=== PATIENT | male | born 1980 | race Caucasian/White ===

== ENCOUNTER 2016-10-28 09:03 | Emergency (ER) | payer OTHER ==
[~2016-10-28] VITALS: Ht 175.3 cm; Wt 89.2 kg
[2016-10-28] MEDS ORDERED: AMOXICILLIN500 MG PO (10:03)
[2016-10-28] MEDS ORDERED: TYLENOL WITH C1 EACH PO (10:04)
[2016-10-28 10:23] VITALS: BP 134/72
== END 2016-10-28 10:24 | disposition home or self-care (01) ==
LOC: EME 09:03
DX: K04.7 Periapical abscess without sinus (principal)
CPT/HCPCS: 99281; 99284

== ENCOUNTER 2016-11-09 11:01 | Emergency (ER) | payer OTHER ==
[~2016-11-09] VITALS: Ht 175.3 cm; Wt 85.0 kg
[~2016-11-09 11:01] MED LIST: AMOXICILLIN500 MG PO; TYLENOL WITH C1 EACH PO
[2016-11-09] MEDS ORDERED: ULTRAM50 MG PO (12:48)
[2016-11-09] MEDS ORDERED: NAPROSYN500 MG PO (12:48)
[2016-11-09] MEDS ORDERED: TYLENOL WITH C1 EACH PO (13:12)
[2016-11-09 13:16] VITALS: BP 126/81
== END 2016-11-09 13:17 | disposition home or self-care (01) ==
LOC: EME 11:01
DX: K08.89 Other specified disorders of teeth and supporting structures (principal); K02.9 Dental caries, unspecified; F17.200 Nicotine dependence, unspecified, uncomplicated
CPT/HCPCS: 99281; 99284

== ENCOUNTER 2016-11-26 21:34 | Emergency (ER) | payer OTHER ==
[~2016-11-26] VITALS: Ht 175.3 cm; Wt 84.6 kg
[~2016-11-26 21:34] MED LIST changes: +NAPROSYN500 MG PO; +ULTRAM50 MG PO
[2016-11-26] MEDS ORDERED: PEN-VEE K,VEET500 MG PO (21:55)
[2016-11-26] MEDS ORDERED: NORCO 5/3251 TABLET PO (21:55)
[2016-11-26 22:27] VITALS: BP 125/81
== END 2016-11-26 22:28 | disposition home or self-care (01) ==
LOC: EME 21:34 → RME 21:34
DX: K08.89 Other specified disorders of teeth and supporting structures (principal); Z98.818 Other dental procedure status; F17.200 Nicotine dependence, unspecified, uncomplicated
CPT/HCPCS: 99281; 99283

== ENCOUNTER 2017-01-23 13:52 | Inpatient (IN) | payer OTHER ==
[~2017-01-23] VITALS: Ht 180.3 cm; Wt 73.4 kg
[2017-01-23] VITALS (10 sets, daily range): BP systolic 128–151; BP diastolic 86–96
[~2017-01-23 13:52] MED LIST changes: +NORCO 5/3251 TABLET PO; +PEN-VEE K,VEET500 MG PO
[2017-01-23 14:06] LABS: BASOPHIL COUNT 0.1 K/uL (0-0.1); EOSINOPHIL (%) 0.5 % (0-5); EOSINOPHIL COUNT 0.1 K/uL (0-0.3); HEMATOCRIT 39.9 % (38.0-50.0); IMMATURE GRANULOCYTE (%) 1.5 % (0.0-0.7); IMMATURE GRANULOCYTE COUNT 0.3 K/uL; INSTRUMENT ABS NEUTROPHIL CT 12.9 K/uL; LYMPHOCYTE COUNT 7.7 K/uL (1.0-2.8); MCH 30.5 PG (29.0-34.0); MCHC 32.1 G/DL (30.0-36.0); MEAN PLAT.VOLUME 10.3 uM^3 (9.0-12.4); MONOCYTE (%) 5.8 % (3-12); MONOCYTE COUNT 1.3 K/uL (0-0.8); NEUTROPHIL (%) 57.4 % (45-76); NEUTROPHIL COUNT 12.9 K/uL (1.8-6.4); PLATELET COUNT 279 K/uL (156-360); RBC DIS.WIDTH-CV 13.8 % (11.8-14.6); RBC DIS.WIDTH-SD 47.9 % (39-53); WHITE BLOOD COUNT 22.4 K/uL (4.1-10.2)
[2017-01-23 14:16] LABS: AMYLASE 39 IU/L (1-118); CHLORIDE 102 mEq/L (99-109); POTASSIUM 3.7 mEq/L (3.7-5.4); SODIUM 139 mEq/L (136-147)
[2017-01-23 14:18] LABS: GLUCOSE 306 mg/dL (70-99)
[2017-01-23 14:20] LABS: ANION GAP 16 MEQ/L (2-14)
[2017-01-23 14:21] LABS: SERUM ETHYL ALCOHOL < 10 mg/dL
[2017-01-23 14:22] LABS: GFR ESTIMATE (CALCULATED) 56 mL/min/
[2017-01-23 14:23] LABS: INTER. NORMALIZED RATIO 1.1; PROTHROMBIN TIME 10.8 (9.2-11.2); PTT 26.4 (25-32); UREA NITROGEN (BUN) 14 mg/dL (9-23)
[2017-01-23 14:25] LABS: LIPASE 30 U/L (1.0-51.0)
[2017-01-23 14:28] LABS: TROP-I INTERPRETATION NEGATIVE; TROPONIN-I < 0.01 ng/mL (0.0-0.30)
[2017-01-23 14:38] LABS: SALICYLATE < 5.0 MG/DL (15-30)
[2017-01-23 14:42] LABS: AMPHETAMINE NEGATIVE (500 ng/mL); BARBITURATES NEGATIVE (200 ng/mL); BENZODIAZEPINES NEGATIVE (150 ng/mL); COCAINE PRESUMPTIVE POSITIVE (150 ng/mL); METHADONE NEGATIVE (200 ng/mL); METHAMPHETAMINE NEGATIVE (500 ng/mL); OPIATES (MORPHINE) PRESUMPTIVE POSITIVE (100 ng/mL); OXYCODONE NEGATIVE (100 ng/mL); PHENCYCLIDINE NEGATIVE (25 ng/mL); PROPOXYPHENE NEGATIVE (300 ng/mL); THC CANNABINOIDS NEGATIVE (50 ng/mL); TRICYCLIC ANTIDEPRESSANTS PRESUMPTIVE POSITIVE (300 ng/mL)
[2017-01-23 14:43] LABS: ADD MEDTOX COMMENT Y; INTERNAL CONTROLS VALID? YES; MEDTOX DRUG SCREEN COMMENT SENT UPSTAIRS REPEAT
[2017-01-23 14:45] LABS: ADD MIUA? YES; BILIRUBIN NEGATIVE; BLOOD NEGATIVE; COLOR AMBER ((YELLOW)); GLUCOSE (STRIP) 150; KETONES 5; LEUKOCYTES NEGATIVE; NITRITE NEGATIVE; PROTEIN (STRIP) 100; SPECIFIC GRAVITY 1.033 (1.000-1.030); UROBILINOGEN 0.2 MG/DL (0.2-1.0)
[2017-01-23 14:54] LABS: BACTERIA 2+ /HPF; EPITHELIAL CELLS RARE /HPF; MUCUS 3+ /LPF; UCUL ADDED? YES
[2017-01-23 14:55] LABS: RED BLOOD CELLS RARE /HPF (0-5)
[2017-01-23 14:56] LABS: UNCLASSIFIED CASTS NONE SEEN /LPF
[2017-01-23 15:39] LABS: BASE EXCESS 4.4 mEq/L (-3 to +3); BICARBONATE 29.8 mEq/L (22-26); CARBOXY HGB 5.2 % (0-5); METHEMOGLOBIN 1.3 % (0-1.5); PCO2 46 mm Hg (35-45); PO2 437 mm Hg (80-100); pH 7.42 (7.35-7.45)
[2017-01-23 15:40] LABS: COMMENTS - BLOOD GASES C+; DEVICE 840; FI02 100 %; MECHANICAL RATE 16 resp/min; MODE A/C; PEEP 5 CM/H20; SITE LEFT ALINE; TIDAL VOLUME 500 ML; TOTAL RESP RATE 30 resp/min
[2017-01-23 17:38] LABS: SAMPLE HEMOLYSIS CHECK 0; SAMPLE ICTERIC CHECK 0; SAMPLE LIPEMIA CHECK 0
[2017-01-23 18:12] LABS: BASE EXCESS 3.8 mEq/L (-3 to +3); BICARBONATE 29.2 mEq/L (22-26); CARBOXY HGB 3.1 % (0-5); METHEMOGLOBIN 1.7 % (0-1.5); PCO2 46 mm Hg (35-45); PO2 138 mm Hg (80-100); pH 7.41 (7.35-7.45)
[2017-01-23 18:13] LABS: COMMENTS - BLOOD GASES C+; DEVICE 840 VENTILATOR; FI02 40 %; MECHANICAL RATE 18 resp/min; MODE AC; PEEP 5 CM/H20; SITE LT RADIAL ALINE; TIDAL VOLUME 470 ML; TOTAL RESP RATE 18 resp/min
[2017-01-23 20:09] LABS: METH RESISTANT S AUREUS PCR NEGATIVE (NEGATIVE)
[2017-01-23 20:13] LABS: PROBE CHECK PASS; SPECIMEN PROCESSING CONTROL PASS
[2017-01-23 21:15] LABS: EOSINOPHIL (%) 0.1 % (0-5); HEMATOCRIT 37.9 % (38.0-50.0); IMMATURE GRANULOCYTE (%) 0.7 % (0.0-0.7); IMMATURE GRANULOCYTE COUNT 0.1 K/uL; INSTRUMENT ABS NEUTROPHIL CT 16.8 K/uL; LYMPHOCYTE COUNT 1.1 K/uL (1.0-2.8); MCH 31.5 PG (29.0-34.0); MCHC 34.3 G/DL (30.0-36.0); MCV 91.8 FL (86-99); MEAN PLAT.VOLUME 10.1 uM^3 (9.0-12.4); MONOCYTE (%) 3.9 % (3-12); MONOCYTE COUNT 0.7 K/uL (0-0.8); NEUTROPHIL (%) 89.3 % (45-76); NEUTROPHIL COUNT 16.8 K/uL (1.8-6.4); PLATELET COUNT 227 K/uL (156-360); RBC DIS.WIDTH-CV 13.4 % (11.8-14.6); RBC DIS.WIDTH-SD 45.8 % (39-53); RED BLOOD COUNT 4.13 M/uL (4.00-5.50); WHITE BLOOD COUNT 18.8 K/uL (4.1-10.2)
[2017-01-23 21:44] LABS: CK-MB 16.1 ng/mL (0.0-4.9); INTER. NORMALIZED RATIO 1.1; PROTHROMBIN TIME 11.3 (9.2-11.2); PTT 27.7 (25-32); TROP-I INTERPRETATION NEGATIVE; TROPONIN-I 0.02 ng/mL (0.0-0.30)
[2017-01-23 22:24] LABS: ANION GAP 10 MEQ/L (2-14); CHLORIDE 106 MEQ/L (99-109); CREATINE KINASE 605 IU/L (1-294); GFR ESTIMATE (CALCULATED) > 59 mL/min/; POTASSIUM 3.4 MEQ/L (3.7-5.4); SAMPLE HEMOLYSIS CHECK 0; SAMPLE ICTERIC CHECK 0; SAMPLE LIPEMIA CHECK 0; SODIUM 139 MEQ/L (136-147); TOTAL CK 605 IU/L (1-294); UREA NITROGEN (BUN) 12 mg/dL (9-23)
[2017-01-23 22:25] LABS: GLUCOSE 147 mg/dL (70-99)
[2017-01-23 23:58] LABS: POINT-OF-CARE METER ID UU13113748
[2017-01-24] VITALS (10 sets, daily range): BP systolic 97–171; BP diastolic 58–113
[2017-01-24 00:19] LABS: BASE EXCESS 0.9 mEq/L (-3 to +3); BICARBONATE 27.5 mEq/L (22-26); CARBOXY HGB 2.4 % (0-5); METHEMOGLOBIN 1.7 % (0-1.5); PCO2 51 mm Hg (35-45); PEEP 5 CM/H20; PO2 119 mm Hg (80-100); pH 7.34 (7.35-7.45)
[2017-01-24 00:20] LABS: COMMENTS - BLOOD GASES C+; DEVICE PB840; FI02 30 %; MECHANICAL RATE 18 resp/min; MODE ACVC; SITE A-LINE; TIDAL VOLUME 470 ML; TOTAL RESP RATE 18 resp/min
[2017-01-24 00:47] LABS: EOSINOPHIL (%) 0 % (0-5); HEMATOCRIT 38.8 % (38.0-50.0); IMMATURE GRANULOCYTE (%) 0.4 % (0.0-0.7); IMMATURE GRANULOCYTE COUNT 0.1 K/uL; INSTRUMENT ABS NEUTROPHIL CT 14.8 K/uL; LYMPHOCYTE COUNT 1.3 K/uL (1.0-2.8); MCH 29.9 PG (29.0-34.0); MCHC 33.2 G/DL (30.0-36.0); MEAN PLAT.VOLUME 10.2 uM^3 (9.0-12.4); MONOCYTE (%) 3.2 % (3-12); MONOCYTE COUNT 0.5 K/uL (0-0.8); NEUTROPHIL (%) 88.7 % (45-76); NEUTROPHIL COUNT 14.8 K/uL (1.8-6.4); PLATELET COUNT 227 K/uL (156-360); RBC DIS.WIDTH-CV 13.3 % (11.8-14.6); RBC DIS.WIDTH-SD 44.1 % (39-53); RED BLOOD COUNT 4.31 M/uL (4.00-5.50); WHITE BLOOD COUNT 16.6 K/uL (4.1-10.2)
[2017-01-24 00:59] LABS: INTER. NORMALIZED RATIO 1.1; PROTHROMBIN TIME 11.4 (9.2-11.2); PTT 29.4 (25-32)
[2017-01-24 01:02] LABS: CHLORIDE 105 mEq/L (99-109); POTASSIUM 3.6 mEq/L (3.7-5.4); SODIUM 138 mEq/L (136-147)
[2017-01-24 01:03] LABS: MAGNESIUM 2.1 mg/dL (1.3-2.7)
[2017-01-24 01:04] LABS: GLUCOSE 118 mg/dL (70-99)
[2017-01-24 01:05] LABS: ANION GAP 9 MEQ/L (2-14)
[2017-01-24 01:08] LABS: GFR ESTIMATE (CALCULATED) > 59 mL/min/
[2017-01-24 01:09] LABS: UREA NITROGEN (BUN) 11 mg/dL (9-23)
[2017-01-24 01:10] LABS: CREATINE KINASE 746 IU/L (1-294); TOTAL CK 746 IU/L (1-294)
[2017-01-24 01:17] LABS: TROP-I INTERPRETATION NEGATIVE; TROPONIN-I < 0.01 ng/mL (0.0-0.30)
[2017-01-24 01:19] LABS: CK-MB 12.7 ng/mL (0.0-4.9)
[2017-01-24] MEDS ORDERED: MELOXICAM15 MG PO (01:42)
[2017-01-24] MEDS ORDERED: PRAZOSIN HCL2 MG PO (01:42)
[2017-01-24] MEDS ORDERED: SEROQUEL400 MG PO (01:42)
[2017-01-24] MEDS ORDERED: CITALOPRAM HBR20 MG PO (01:42)
[2017-01-24] MEDS ORDERED: TIZANIDINE HCL4 MG PO (01:43)
[2017-01-24] MEDS ORDERED: CYCLOBENZAPRINE10 MG PO (01:43)
[2017-01-24] MEDS ORDERED: LYRICA75 MG PO (01:43)
[2017-01-24 05:38] LABS: BASE EXCESS 0.6 mEq/L (-3 to +3); BICARBONATE 26.6 mEq/L (22-26); CARBOXY HGB 2.2 % (0-5); METHEMOGLOBIN 1.8 % (0-1.5); PCO2 47 mm Hg (35-45); PO2 127 mm Hg (80-100); pH 7.36 (7.35-7.45)
[2017-01-24 05:39] LABS: COMMENTS - BLOOD GASES C+; DEVICE VENT; FI02 30 %; MECHANICAL RATE 18 resp/min; MODE AC; PEEP 5 CM/H20; SITE A-LINE; TIDAL VOLUME 470 ML; TOTAL RESP RATE 29 resp/min
[2017-01-24 05:44] LABS: POINT-OF-CARE METER ID UU13113748
[2017-01-24 06:25] LABS: EOSINOPHIL (%) 0 % (0-5); HEMATOCRIT 39.7 % (38.0-50.0); IMMATURE GRANULOCYTE (%) 0.6 % (0.0-0.7); IMMATURE GRANULOCYTE COUNT 0.1 K/uL; INSTRUMENT ABS NEUTROPHIL CT 15.2 K/uL; MCH 30.4 PG (29.0-34.0); MCHC 33.8 G/DL (30.0-36.0); MEAN PLAT.VOLUME 10.1 uM^3 (9.0-12.4); MONOCYTE (%) 4.2 % (3-12); MONOCYTE COUNT 0.7 K/uL (0-0.8); NEUTROPHIL (%) 89.1 % (45-76); NEUTROPHIL COUNT 15.2 K/uL (1.8-6.4); PLATELET COUNT 232 K/uL (156-360); RBC DIS.WIDTH-CV 13.2 % (11.8-14.6); RBC DIS.WIDTH-SD 44.2 % (39-53); RED BLOOD COUNT 4.41 M/uL (4.00-5.50)
[2017-01-24 06:32] LABS: CHLORIDE 103 mEq/L (99-109); POTASSIUM 3.4 mEq/L (3.7-5.4); SODIUM 138 mEq/L (136-147)
[2017-01-24 06:33] LABS: MAGNESIUM 1.8 mg/dL (1.3-2.7)
[2017-01-24 06:35] LABS: GLUCOSE 161 mg/dL (70-99)
[2017-01-24 06:36] LABS: ANION GAP 10 MEQ/L (2-14)
[2017-01-24 06:38] LABS: GFR ESTIMATE (CALCULATED) > 59 mL/min/
[2017-01-24 06:39] LABS: UREA NITROGEN (BUN) 10 mg/dL (9-23)
[2017-01-24 06:40] LABS: INTER. NORMALIZED RATIO 1.1; PROTHROMBIN TIME 11.1 (9.2-11.2); PTT 31.9 (25-32)
[2017-01-24 06:41] LABS: CREATINE KINASE 747 IU/L (1-294); TOTAL CK 747 IU/L (1-294)
[2017-01-24 06:48] LABS: TROP-I INTERPRETATION NEGATIVE; TROPONIN-I < 0.01 ng/mL (0.0-0.30)
[2017-01-24 12:58] LABS: BASE EXCESS 1.2 mEq/L (-3 to +3); BICARBONATE 26.6 mEq/L (22-26); CARBOXY HGB 2.2 % (0-5); COMMENTS - BLOOD GASES C+; DEVICE 840 VENTILATOR; FI02 30 %; MECHANICAL RATE 18 resp/min; METHEMOGLOBIN 1.8 % (0-1.5); MODE AC; PCO2 44 mm Hg (35-45); PEEP 5 CM/H20; PO2 116 mm Hg (80-100); SITE ALINE; TIDAL VOLUME 470 ML; TOTAL RESP RATE 21 resp/min; pH 7.39 (7.35-7.45)
[2017-01-24 13:02] LABS: POINT-OF-CARE METER ID UU14174217
[2017-01-24 13:22] LABS: EOSINOPHIL (%) 0.1 % (0-5); HEMATOCRIT 38.4 % (38.0-50.0); IMMATURE GRANULOCYTE (%) 0.5 % (0.0-0.7); IMMATURE GRANULOCYTE COUNT 0.1 K/uL; INSTRUMENT ABS NEUTROPHIL CT 14.5 K/uL; MCH 30.6 PG (29.0-34.0); MCHC 34.4 G/DL (30.0-36.0); MCV 89.1 FL (86-99); MEAN PLAT.VOLUME 10.6 uM^3 (9.0-12.4); MONOCYTE (%) 5.4 % (3-12); MONOCYTE COUNT 0.9 K/uL (0-0.8); NEUTROPHIL (%) 87.6 % (45-76); NEUTROPHIL COUNT 14.5 K/uL (1.8-6.4); PLATELET COUNT 239 K/uL (156-360); RBC DIS.WIDTH-CV 13.3 % (11.8-14.6); RBC DIS.WIDTH-SD 44.1 % (39-53); RED BLOOD COUNT 4.31 M/uL (4.00-5.50); WHITE BLOOD COUNT 16.5 K/uL (4.1-10.2)
[2017-01-24 13:39] LABS: TROP-I INTERPRETATION NEGATIVE; TROPONIN-I < 0.01 ng/mL (0.0-0.30)
[2017-01-24 13:43] LABS: ANION GAP 9 MEQ/L (2-14); CHLORIDE 103 MEQ/L (99-109); GFR ESTIMATE (CALCULATED) > 59 mL/min/; GLUCOSE 124 mg/dL (70-99); MAGNESIUM 1.7 mg/dl (1.3-2.7); POTASSIUM 3.3 MEQ/L (3.7-5.4); SAMPLE HEMOLYSIS CHECK 0; SAMPLE ICTERIC CHECK 0; SAMPLE LIPEMIA CHECK 0; SODIUM 137 MEQ/L (136-147); UREA NITROGEN (BUN) 8 mg/dL (9-23)
[2017-01-24 13:45] LABS: INTER. NORMALIZED RATIO 1.1; PROTHROMBIN TIME 11.1 (9.2-11.2); PTT 31.2 (25-32)
[2017-01-24 13:58] LABS: CREATINE KINASE 481 IU/L (1-294); TOTAL CK 481 IU/L (1-294)
[2017-01-24 18:42] LABS: BASE EXCESS 0.7 mEq/L (-3 to +3); BICARBONATE 25.4 mEq/L (22-26); CARBOXY HGB 1.9 % (0-5); COMMENTS - BLOOD GASES C+; DEVICE 840 VENTILATOR; FI02 30 %; MECHANICAL RATE 18 resp/min; METHEMOGLOBIN 1.7 % (0-1.5); MODE AC; PCO2 40 mm Hg (35-45); PEEP 5 CM/H20; PO2 78 mm Hg (80-100); SITE ALINE; TIDAL VOLUME 470 ML; TOTAL RESP RATE 22 resp/min; pH 7.41 (7.35-7.45)
[2017-01-24 19:07] LABS: POINT-OF-CARE METER ID UU14174217
[2017-01-24 19:22] LABS: EOSINOPHIL (%) 0 % (0-5); HEMATOCRIT 37.3 % (38.0-50.0); IMMATURE GRANULOCYTE (%) 0.5 % (0.0-0.7); IMMATURE GRANULOCYTE COUNT 0.1 K/uL; INSTRUMENT ABS NEUTROPHIL CT 13.6 K/uL; MCH 30.5 PG (29.0-34.0); MCV 89.7 FL (86-99); MONOCYTE (%) 4.8 % (3-12); MONOCYTE COUNT 0.7 K/uL (0-0.8); NEUTROPHIL (%) 88.5 % (45-76); NEUTROPHIL COUNT 13.6 K/uL (1.8-6.4); PLATELET COUNT 220 K/uL (156-360); RBC DIS.WIDTH-CV 13.3 % (11.8-14.6); RBC DIS.WIDTH-SD 43.9 % (39-53); RED BLOOD COUNT 4.16 M/uL (4.00-5.50); WHITE BLOOD COUNT 15.3 K/uL (4.1-10.2)
[2017-01-24 19:32] LABS: ANION GAP 9 MEQ/L (2-14); CHLORIDE 104 MEQ/L (99-109); POTASSIUM 2.7 MEQ/L (3.7-5.4); SAMPLE HEMOLYSIS CHECK 0; SAMPLE ICTERIC CHECK 0; SAMPLE LIPEMIA CHECK 0; SODIUM 137 MEQ/L (136-147)
[2017-01-24 19:33] LABS: INTER. NORMALIZED RATIO 1.1; PROTHROMBIN TIME 10.9 (9.2-11.2); PTT 31.2 (25-32)
[2017-01-24 19:34] LABS: MAGNESIUM 2.4 mg/dl (1.3-2.7)
[2017-01-24 19:38] LABS: GFR ESTIMATE (CALCULATED) > 59 mL/min/; GLUCOSE 171 mg/dL (70-99); UREA NITROGEN (BUN) 7 mg/dL (9-23)
[2017-01-24 19:42] LABS: TROP-I INTERPRETATION NEGATIVE; TROPONIN-I < 0.01 ng/mL (0.0-0.30)
[2017-01-25] VITALS: BP 110/70
[2017-01-25 01:05] LABS: POINT-OF-CARE METER ID UU13113748
[2017-01-25 01:53] LABS: BASE EXCESS 4.2 mEq/L (-3 to +3); BICARBONATE 27.3 mEq/L (22-26); CARBOXY HGB 1.8 % (0-5); METHEMOGLOBIN 1.9 % (0-1.5); PO2 68 mm Hg (80-100)
[2017-01-25 01:54] LABS: EOSINOPHIL (%) 0.1 % (0-5); HEMATOCRIT 37.7 % (38.0-50.0); IMMATURE GRANULOCYTE (%) 0.6 % (0.0-0.7); IMMATURE GRANULOCYTE COUNT 0.1 K/uL; INSTRUMENT ABS NEUTROPHIL CT 17.6 K/uL; LYMPHOCYTE COUNT 1.2 K/uL (1.0-2.8); MCH 30.2 PG (29.0-34.0); MCHC 34.7 G/DL (30.0-36.0); MCV 86.9 FL (86-99); MEAN PLAT.VOLUME 10.1 uM^3 (9.0-12.4); MONOCYTE (%) 4.9 % (3-12); NEUTROPHIL (%) 88.2 % (45-76); NEUTROPHIL COUNT 17.6 K/uL (1.8-6.4); PLATELET COUNT 258 K/uL (156-360); RBC DIS.WIDTH-CV 13.2 % (11.8-14.6); RED BLOOD COUNT 4.34 M/uL (4.00-5.50)
[2017-01-25 01:54] LABS: COMMENTS - BLOOD GASES C+; DEVICE VENT; FI02 30 %; MECHANICAL RATE 18 resp/min; MODE ACVC; PCO2 35 mm Hg (35-45); PEEP 5 CM/H20; TIDAL VOLUME 470 ML; TOTAL RESP RATE 29 resp/min
[2017-01-25 01:55] LABS: SITE A-LINE
[2017-01-25 02:01] LABS: CHLORIDE 103 mEq/L (99-109); SODIUM 137 mEq/L (136-147)
[2017-01-25 02:03] LABS: GLUCOSE 127 mg/dL (70-99)
[2017-01-25 02:05] LABS: ANION GAP 9 MEQ/L (2-14)
[2017-01-25 02:07] LABS: GFR ESTIMATE (CALCULATED) > 59 mL/min/
[2017-01-25 02:08] LABS: UREA NITROGEN (BUN) 6 mg/dL (9-23)
[2017-01-25 02:10] LABS: INTER. NORMALIZED RATIO 1.1; PROTHROMBIN TIME 10.9 (9.2-11.2); PTT 30.5 (25-32)
[2017-01-25 02:13] LABS: MAGNESIUM 2.1 mg/dL (1.3-2.7)
[2017-01-25 02:13] LABS: TROP-I INTERPRETATION NEGATIVE; TROPONIN-I < 0.01 ng/mL (0.0-0.30)
[2017-01-25 06:00] LABS: POINT-OF-CARE METER ID UU14174217
[2017-01-25 08:07] LABS: BASE EXCESS 4.1 mEq/L (-3 to +3); BICARBONATE 27.4 mEq/L (22-26); CARBOXY HGB 2.1 % (0-5); METHEMOGLOBIN 1.7 % (0-1.5); PCO2 36 mm Hg (35-45); PO2 72 mm Hg (80-100); pH 7.49 (7.35-7.45)
[2017-01-25 08:08] LABS: COMMENTS - BLOOD GASES A+C+; DEVICE 840; FI02 30 %; MECHANICAL RATE 18 resp/min; MODE AC; PEEP 5 CM/H20; SITE ALINE; TIDAL VOLUME 470 ML; TOTAL RESP RATE 26 resp/min
[2017-01-25 08:45] LABS: EOSINOPHIL (%) 0 % (0-5); HEMATOCRIT 37.8 % (38.0-50.0); IMMATURE GRANULOCYTE (%) 0.4 % (0.0-0.7); IMMATURE GRANULOCYTE COUNT 0.1 K/uL; INSTRUMENT ABS NEUTROPHIL CT 18.6 K/uL; LYMPHOCYTE COUNT 1.3 K/uL (1.0-2.8); MCH 30.1 PG (29.0-34.0); MCHC 34.4 G/DL (30.0-36.0); MCV 87.5 FL (86-99); MEAN PLAT.VOLUME 10.1 uM^3 (9.0-12.4); MONOCYTE (%) 4.3 % (3-12); MONOCYTE COUNT 0.9 K/uL (0-0.8); NEUTROPHIL (%) 88.9 % (45-76); NEUTROPHIL COUNT 18.6 K/uL (1.8-6.4); PLATELET COUNT 259 K/uL (156-360); RBC DIS.WIDTH-CV 13.5 % (11.8-14.6); RBC DIS.WIDTH-SD 43.7 % (39-53); RED BLOOD COUNT 4.32 M/uL (4.00-5.50)
[2017-01-25 08:55] LABS: INTER. NORMALIZED RATIO 1.1; PROTHROMBIN TIME 10.8 (9.2-11.2); PTT 29.9 (25-32)
[2017-01-25 09:22] LABS: TROP-I INTERPRETATION NEGATIVE; TROPONIN-I < 0.01 ng/mL (0.0-0.30)
[2017-01-25 09:23] LABS: ANION GAP 10 MEQ/L (2-14); CHLORIDE 101 MEQ/L (99-109); GFR ESTIMATE (CALCULATED) > 59 mL/min/; GLUCOSE 127 mg/dL (70-99); POTASSIUM 3.2 MEQ/L (3.7-5.4); SAMPLE HEMOLYSIS CHECK 0; SAMPLE ICTERIC CHECK 0; SAMPLE LIPEMIA CHECK 0; SODIUM 137 MEQ/L (136-147); UREA NITROGEN (BUN) 6 mg/dL (9-23)
[2017-01-25 12:31] LABS: POINT-OF-CARE METER ID UU14174217
[2017-01-25 16:14] LABS: GASTRIC OCCULT BLD. POSITIVE; INTERNAL CONTROL VALID? YES
[2017-01-25 17:00] VITALS: BP 110/70
[2017-01-25 18:03] LABS: POINT-OF-CARE METER ID UU14174217
[2017-01-25 18:20] LABS: HEMATOCRIT 37.2 % (38.0-50.0); MCH 30.8 PG (29.0-34.0); MCHC 35.2 G/DL (30.0-36.0); MCV 87.3 FL (86-99); MEAN PLAT.VOLUME 10.6 uM^3 (9.0-12.4); NRBC (%) 0.1 /100 WBC (0-0); PLATELET COUNT 276 K/uL (156-360); RBC DIS.WIDTH-CV 13.9 % (11.8-14.6); RBC DIS.WIDTH-SD 44.2 % (39-53); RED BLOOD COUNT 4.26 M/uL (4.00-5.50); WHITE BLOOD COUNT 23.5 K/uL (4.1-10.2)
[2017-01-26 01:12] LABS: POINT-OF-CARE METER ID UU14174217
[2017-01-26 05:41] LABS: POINT-OF-CARE METER ID UU13113748
[2017-01-26 05:43] LABS: BASE EXCESS 9.6 mEq/L (-3 to +3); BICARBONATE 30.5 mEq/L (22-26); CARBOXY HGB 2.1 % (0-5); PO2 59 mm Hg (80-100)
[2017-01-26 05:44] LABS: COMMENTS - BLOOD GASES C+; DEVICE VENT; FI02 30 %; MECHANICAL RATE 18 resp/min; MODE AC; PCO2 29 mm Hg (35-45); PEEP 5 CM/H20; SITE A-LINE; TIDAL VOLUME 470 ML; TOTAL RESP RATE 34 resp/min; pH 7.63 (7.35-7.45)
[2017-01-26 06:24] LABS: EOSINOPHIL (%) 0 % (0-5); HEMATOCRIT 37.9 % (38.0-50.0); IMMATURE GRANULOCYTE (%) 0.9 % (0.0-0.7); IMMATURE GRANULOCYTE COUNT 0.2 K/uL; INSTRUMENT ABS NEUTROPHIL CT 19.1 K/uL; LYMPHOCYTE COUNT 2.6 K/uL (1.0-2.8); MCH 31.3 PG (29.0-34.0); MCHC 35.4 G/DL (30.0-36.0); MCV 88.6 FL (86-99); MEAN PLAT.VOLUME 10.9 uM^3 (9.0-12.4); MONOCYTE (%) 6.7 % (3-12); MONOCYTE COUNT 1.6 K/uL (0-0.8); NEUTROPHIL (%) 81.2 % (45-76); NEUTROPHIL COUNT 19.1 K/uL (1.8-6.4); NRBC (%) 0.2 /100 WBC (0-0); PLATELET COUNT 289 K/uL (156-360); RBC DIS.WIDTH-CV 14.3 % (11.8-14.6); RBC DIS.WIDTH-SD 45.7 % (39-53); RED BLOOD COUNT 4.28 M/uL (4.00-5.50); WHITE BLOOD COUNT 23.5 K/uL (4.1-10.2)
[2017-01-26 07:00] VITALS: BP 133/72
[2017-01-26 07:03] LABS: ANION GAP 12 MEQ/L (2-14); CHLORIDE 108 MEQ/L (99-109); GFR ESTIMATE (CALCULATED) > 59 mL/min/; GLUCOSE 109 mg/dL (70-99); MAGNESIUM 2.6 mg/dl (1.3-2.7); POTASSIUM 3.2 MEQ/L (3.7-5.4); SAMPLE HEMOLYSIS CHECK 0; SAMPLE ICTERIC CHECK 0; SAMPLE LIPEMIA CHECK 0; SODIUM 149 MEQ/L (136-147); UREA NITROGEN (BUN) 14 mg/dL (9-23)
[2017-01-26 09:36] LABS: ALKALINE PHOSPHATASE 76 IU/L (3-129); DIRECT BILIRUBIN 0.1 mg/dL (0.0-0.3); TOTAL BILIRUBIN 0.4 MG/DL (0.0-1.0)
[2017-01-26 12:38] LABS: POINT-OF-CARE METER ID UU13113748
[2017-01-26 18:29] LABS: POINT-OF-CARE METER ID UU13113748
[2017-01-27 01:00] LABS: POINT-OF-CARE METER ID UU13113748
[2017-01-27 06:09] LABS: EOSINOPHIL (%) 0 % (0-5); HEMATOCRIT 39.6 % (38.0-50.0); IMMATURE GRANULOCYTE (%) 1.2 % (0.0-0.7); IMMATURE GRANULOCYTE COUNT 0.3 K/uL; INSTRUMENT ABS NEUTROPHIL CT 18.4 K/uL; LYMPHOCYTE COUNT 2.5 K/uL (1.0-2.8); MCH 29.8 PG (29.0-34.0); MCHC 32.6 G/DL (30.0-36.0); MCV 91.5 FL (86-99); MEAN PLAT.VOLUME 10.3 uM^3 (9.0-12.4); MONOCYTE (%) 6.9 % (3-12); MONOCYTE COUNT 1.6 K/uL (0-0.8); NEUTROPHIL (%) 80.9 % (45-76); NEUTROPHIL COUNT 18.4 K/uL (1.8-6.4); NRBC (%) 0.2 /100 WBC (0-0); PLATELET COUNT 266 K/uL (156-360); RBC DIS.WIDTH-CV 14.8 % (11.8-14.6); RBC DIS.WIDTH-SD 50.2 % (39-53); RED BLOOD COUNT 4.33 M/uL (4.00-5.50); WHITE BLOOD COUNT 22.8 K/uL (4.1-10.2)
[2017-01-27 06:35] LABS: ANION GAP 11 MEQ/L (2-14); CHLORIDE 112 MEQ/L (99-109); GFR ESTIMATE (CALCULATED) > 59 mL/min/; GLUCOSE 109 mg/dL (70-99); POTASSIUM 3.1 MEQ/L (3.7-5.4); SAMPLE HEMOLYSIS CHECK 0; SAMPLE ICTERIC CHECK 0; SAMPLE LIPEMIA CHECK 0; UREA NITROGEN (BUN) 18 mg/dL (9-23)
[2017-01-27 06:38] LABS: MAGNESIUM 3.1 mg/dl (1.3-2.7); SODIUM 158 MEQ/L (136-147)
[2017-01-27 09:25] LABS: ALKALINE PHOSPHATASE 84 IU/L (3-129); DIRECT BILIRUBIN 0.3 mg/dL (0.0-0.3); TOTAL BILIRUBIN 0.8 MG/DL (0.0-1.0)
[2017-01-27 11:27] LABS: BASE EXCESS 14.5 mEq/L (-3 to +3); BICARBONATE 37.3 mEq/L (22-26); CARBOXY HGB 1.9 % (0-5); METHEMOGLOBIN 1.9 % (0-1.5); PCO2 38 mm Hg (35-45); PO2 73 mm Hg (80-100)
[2017-01-27 11:28] LABS: COMMENTS - BLOOD GASES C+; DEVICE 840; FI02 45 %; MECHANICAL RATE 18 resp/min; MODE AC; SITE ALINE; TOTAL RESP RATE 28 resp/min
[2017-01-27 11:29] LABS: PEEP 5 CM/H20; TIDAL VOLUME 470 ML
[2017-01-27 13:56] LABS: POINT-OF-CARE METER ID UU13113748
[2017-01-27 18:00] LABS: POINT-OF-CARE METER ID UU13113748
[2017-01-27 23:56] LABS: POINT-OF-CARE METER ID UU13113748
[2017-01-28] VITALS (12 sets, daily range): BP systolic 0–170; BP diastolic 0–97
[2017-01-28 00:08] LABS: CHLORIDE 110 mEq/L (99-109); POTASSIUM 3.4 mEq/L (3.7-5.4); SODIUM 153 mEq/L (136-147)
[2017-01-28 00:11] LABS: GLUCOSE 107 mg/dL (70-99)
[2017-01-28 00:12] LABS: ANION GAP 10 MEQ/L (2-14); TOTAL BILIRUBIN 1.5 mg/dL (0.0-1.0)
[2017-01-28 00:14] LABS: ALKALINE PHOSPHATASE 97 IU/L (3-129); GFR ESTIMATE (CALCULATED) > 59 mL/min/
[2017-01-28 00:15] LABS: UREA NITROGEN (BUN) 24 mg/dL (9-23)
[2017-01-28 00:16] LABS: DIRECT BILIRUBIN 1.2 mg/dL (0.0-0.3)
[2017-01-28 00:22] LABS: MAGNESIUM 2.6 mg/dL (1.3-2.7)
[2017-01-28 00:29] LABS: BASE EXCESS 10.5 mEq/L (-3 to +3); BICARBONATE 39.2 mEq/L (22-26); CARBOXY HGB 1.5 % (0-5); METHEMOGLOBIN 1.7 % (0-1.5); PCO2 76 mm Hg (35-45); PEEP 5 CM/H20; PO2 97 mm Hg (80-100); TIDAL VOLUME 470 ML; TOTAL RESP RATE 18 resp/min; pH 7.32 (7.35-7.45)
[2017-01-28 00:30] LABS: COMMENTS - BLOOD GASES C+; DEVICE PB840; FI02 45 %; MECHANICAL RATE 18 resp/min; MODE ACVC; SITE A-LINE
[2017-01-28 02:05] LABS: BASE EXCESS 10.3 mEq/L (-3 to +3); BICARBONATE 35.6 mEq/L (22-26); CARBOXY HGB 1.8 % (0-5); METHEMOGLOBIN 1.9 % (0-1.5)
[2017-01-28 02:06] LABS: COMMENTS - BLOOD GASES C+; DEVICE PB840; FI02 45 %; MECHANICAL RATE 18 resp/min; MODE ACVC; PCO2 50 mm Hg (35-45); PO2 77 mm Hg (80-100); SITE A-LINE; pH 7.46 (7.35-7.45)
[2017-01-28 02:07] LABS: PEEP 5 CM/H20; TIDAL VOLUME 470 ML; TOTAL RESP RATE 18 resp/min
[2017-01-28 05:51] LABS: ANION GAP 8 MEQ/L (2-14); CHLORIDE 110 MEQ/L (99-109); GFR ESTIMATE (CALCULATED) > 59 mL/min/; MAGNESIUM 2.7 mg/dl (1.3-2.7); POTASSIUM 3.4 MEQ/L (3.7-5.4); SAMPLE HEMOLYSIS CHECK 0; SAMPLE ICTERIC CHECK 0; SAMPLE LIPEMIA CHECK 0; SODIUM 152 MEQ/L (136-147); UREA NITROGEN (BUN) 31 mg/dL (9-23)
[2017-01-28 05:53] LABS: EOSINOPHIL (%) 0.4 % (0-5); EOSINOPHIL COUNT 0.1 K/uL (0-0.3); HEMATOCRIT 32.1 % (38.0-50.0); IMMATURE GRANULOCYTE (%) 1.7 % (0.0-0.7); IMMATURE GRANULOCYTE COUNT 0.3 K/uL; INSTRUMENT ABS NEUTROPHIL CT 13.7 K/uL; LYMPHOCYTE COUNT 3.6 K/uL (1.0-2.8); MCH 30.8 PG (29.0-34.0); MCHC 32.7 G/DL (30.0-36.0); MCV 94.1 FL (86-99); MEAN PLAT.VOLUME 10.5 uM^3 (9.0-12.4); MONOCYTE (%) 9.8 % (3-12); MONOCYTE COUNT 1.9 K/uL (0-0.8); NEUTROPHIL (%) 69.6 % (45-76); NEUTROPHIL COUNT 13.7 K/uL (1.8-6.4); NRBC (%) 0.2 /100 WBC (0-0); PLATELET COUNT 235 K/uL (156-360); RBC DIS.WIDTH-CV 15.2 % (11.8-14.6); RBC DIS.WIDTH-SD 52.6 % (39-53); RED BLOOD COUNT 3.41 M/uL (4.00-5.50); WHITE BLOOD COUNT 19.7 K/uL (4.1-10.2)
[2017-01-28 06:40] LABS: GLUCOSE 220 mg/dL (70-99)
[2017-01-28 07:44] LABS: POINT-OF-CARE METER ID UU13113748
[2017-01-28 11:01] LABS: AMPHETAMINES QUANT VALUE 0 NG/ML; BARBITUATES QUANT VALUE 0 NG/ML; BENZODIAZEPINES QUANT VALUE 0 NG/ML; BENZODIAZEPINES, URINE SCREEN Negative (200 ng/mL); MARIJUANA QUANT VALUE 0 NG/ML; PHENCYCLIDINE QUANT VALUE 0 NG/ML
[2017-01-28 12:25] LABS: POINT-OF-CARE METER ID UU13113748
[2017-01-28 12:51] LABS: ANION GAP 8 MEQ/L (2-14); CHLORIDE 105 MEQ/L (99-109); GFR ESTIMATE (CALCULATED) > 59 mL/min/; GLUCOSE 139 mg/dL (70-99); MAGNESIUM 2.2 mg/dl (1.3-2.7); POTASSIUM 3.1 MEQ/L (3.7-5.4); SAMPLE HEMOLYSIS CHECK 0; SAMPLE ICTERIC CHECK 0; SAMPLE LIPEMIA CHECK 0; SODIUM 145 MEQ/L (136-147); UREA NITROGEN (BUN) 34 mg/dL (9-23)
[2017-01-28 13:24] LABS: BASE EXCESS 8.7 mEq/L (-3 to +3); BICARBONATE 35.2 mEq/L (22-26); CARBOXY HGB 1.9 % (0-5); METHEMOGLOBIN 1.5 % (0-1.5); PCO2 53 mm Hg (35-45); pH 7.43 (7.35-7.45)
[2017-01-28 13:25] LABS: PO2 150 mm Hg (80-100); SITE RIGHT HAND ALINE
[2017-01-28 13:26] LABS: COMMENTS - BLOOD GASES C+; DEVICE VENT; FI02 70 %; MECHANICAL RATE 18 resp/min; MODE AC; PEEP 8 CM/H20; TIDAL VOLUME 470 ML; TOTAL RESP RATE 18 resp/min
[2017-01-28 13:55] LABS: BASE EXCESS 9.1 mEq/L (-3 to +3); BICARBONATE 32.7 mEq/L (22-26); CARBOXY HGB 1.1 % (0-5); METHEMOGLOBIN 1.7 % (0-1.5); pH 7.52 (7.35-7.45)
[2017-01-28 13:56] LABS: COMMENTS - BLOOD GASES C+; DEVICE VENT; FI02 100 %; MECHANICAL RATE 22 resp/min; MODE AC; PCO2 40 mm Hg (35-45); PEEP 8 CM/H20; PO2 241 mm Hg (80-100); SITE R HAND ALINE; TIDAL VOLUME 550 ML; TOTAL RESP RATE 22 resp/min
[2017-01-28 14:19] LABS: BASE EXCESS 7.7 mEq/L (-3 to +3); CARBOXY HGB 1.4 % (0-5); METHEMOGLOBIN 1.8 % (0-1.5)
[2017-01-28 14:20] LABS: BICARBONATE 38.4 mEq/L (22-26); DEVICE NC VIA OETT; O2 FLOW 15 L/MIN; PCO2 96 mm Hg (35-45); PO2 368 mm Hg (80-100); SITE RT RADIAL ALINE; pH 7.21 (7.35-7.45)
[2017-01-28 14:21] LABS: COMMENTS - BLOOD GASES C+ APNEA TESTING
[2017-01-28 20:20] LABS: BASE EXCESS 4.9 mEq/L (-3 to +3); BICARBONATE 33.2 mEq/L (22-26); CARBOXY HGB 2.1 % (0-5); COMMENTS - BLOOD GASES C+; METHEMOGLOBIN 1.4 % (0-1.5); PCO2 63 mm Hg (35-45); PO2 78 mm Hg (80-100); SITE LEFT ALINE; pH 7.33 (7.35-7.45)
[2017-01-28 20:21] LABS: DEVICE 980; FI02 60 %; MECHANICAL RATE 10 resp/min; MODE BILEVEL
[2017-01-28 20:30] LABS: CREATINE KINASE 160 IU/L (1-294); TOTAL CK 160 IU/L (1-294)
[2017-01-28 20:37] LABS: TROP-I INTERPRETATION INDETERMINATE; TROPONIN-I 0.48 ng/mL (0.0-0.30)
[2017-01-28 20:38] LABS: ADD MIUA? YES; BILIRUBIN NEGATIVE; BLOOD NEGATIVE; COLOR AMBER ((YELLOW)); GLUCOSE (STRIP) NEGATIVE; KETONES NEGATIVE; LEUKOCYTES NEGATIVE; NITRITE NEGATIVE; PROTEIN (STRIP) 30; SPECIFIC GRAVITY 1.024 (1.000-1.030); UROBILINOGEN 0.2 MG/DL (0.2-1.0)
[2017-01-28 20:56] LABS: BACTERIA RARE /HPF; EPITHELIAL CELLS NONE SEEN /HPF; MUCUS TRACE /LPF; UCUL ADDED? NO; WHITE BLOOD CELLS 20-30 /HPF (0-5)
[2017-01-28 22:03] LABS: HEMATOCRIT 26.9 % (38.0-50.0); MCH 30.3 PG (29.0-34.0); MCV 94.7 FL (86-99); MEAN PLAT.VOLUME 9.9 uM^3 (9.0-12.4); PLATELET COUNT 177 K/uL (156-360); RBC DIS.WIDTH-CV 14.7 % (11.8-14.6); RBC DIS.WIDTH-SD 51.8 % (39-53); RED BLOOD COUNT 2.84 M/uL (4.00-5.50); WHITE BLOOD COUNT 11.9 K/uL (4.1-10.2)
[2017-01-28 22:15] LABS: CHLORIDE 107 mEq/L (99-109); SODIUM 147 mEq/L (136-147)
[2017-01-28 22:17] LABS: MAGNESIUM 1.9 mg/dL (1.3-2.7)
[2017-01-28 22:18] LABS: GLUCOSE 203 mg/dL (70-99)
[2017-01-28 22:19] LABS: ANION GAP 9 MEQ/L (2-14)
[2017-01-28 22:20] LABS: TOTAL BILIRUBIN 1.7 mg/dL (0.0-1.0)
[2017-01-28 22:21] LABS: ALKALINE PHOSPHATASE 76 IU/L (3-129)
[2017-01-28 22:22] LABS: GFR ESTIMATE (CALCULATED) > 59 mL/min/
[2017-01-28 22:23] LABS: UREA NITROGEN (BUN) 34 mg/dL (9-23)
[2017-01-28 22:37] LABS: ABS NEUTROPHIL COUNT 10.7; BAND NEUTROPHILS 5.5 % (0-8.0); BASOPHILS 0.9 %; EOSINOPHIL ABS CT 0; INSTRUMENT ABS NEUTROPHIL CT 9.6 K/uL; LYMPHOCYTES 7.4 % (15.0-45.0); SEG.NEUTROPHILS 84.4 % (46.0-76.0)
[2017-01-28 22:50] LABS: GAMMA-GT 169 IU/L (4-73); SAMPLE HEMOLYSIS CHECK 0; SAMPLE ICTERIC CHECK 0; SAMPLE LIPEMIA CHECK 0
[2017-01-28 23:51] LABS: DIRECT BILIRUBIN 1.2 mg/dL (0.0-0.3)
[2017-01-29 02:20] LABS: POINT-OF-CARE METER ID UU13113748
[2017-01-29 04:05] LABS: BASE EXCESS 10.1 mEq/L (-3 to +3); BICARBONATE 36.1 mEq/L (22-26); CARBOXY HGB 1.5 % (0-5); COMMENTS - BLOOD GASES C+; DEVICE PB840; METHEMOGLOBIN 1.6 % (0-1.5); PCO2 57 mm Hg (35-45); PO2 96 mm Hg (80-100); SITE A-LINE; pH 7.41 (7.35-7.45)
[2017-01-29 04:06] LABS: FI02 50 %; MECHANICAL RATE 10 resp/min; MODE BILEVEL; PEEP 20 CM/H20; TOTAL RESP RATE 10 resp/min
[2017-01-29 04:29] LABS: HEMATOCRIT 27.3 % (38.0-50.0); MCH 29.8 PG (29.0-34.0); MCHC 31.9 G/DL (30.0-36.0); MCV 93.5 FL (86-99); MEAN PLAT.VOLUME 10.4 uM^3 (9.0-12.4); NRBC (%) 0.2 /100 WBC (0-0); PLATELET COUNT 187 K/uL (156-360); RBC DIS.WIDTH-CV 14.7 % (11.8-14.6); RBC DIS.WIDTH-SD 50.6 % (39-53); RED BLOOD COUNT 2.92 M/uL (4.00-5.50)
[2017-01-29 04:39] LABS: PROTHROMBIN TIME 10.2 (9.2-11.2); PTT 28.2 (25-32)
[2017-01-29 04:47] LABS: CHLORIDE 102 mEq/L (99-109)
[2017-01-29 04:48] LABS: MAGNESIUM 2.8 mg/dL (1.3-2.7); POTASSIUM 4.8 mEq/L (3.7-5.4); SODIUM 144 mEq/L (136-147)
[2017-01-29 04:50] LABS: GLUCOSE 197 mg/dL (70-99)
[2017-01-29 04:52] LABS: ANION GAP 9 MEQ/L (2-14)
[2017-01-29 04:54] LABS: ALKALINE PHOSPHATASE 89 IU/L (3-129); GFR ESTIMATE (CALCULATED) > 59 mL/min/; TROP-I INTERPRETATION NEGATIVE; TROPONIN-I 0.24 ng/mL (0.0-0.30)
[2017-01-29 04:55] LABS: TOTAL BILIRUBIN 0.9 mg/dL (0.0-1.0); UREA NITROGEN (BUN) 36 mg/dL (9-23)
[2017-01-29 04:56] LABS: DIRECT BILIRUBIN 0.6 mg/dL (0.0-0.3)
[2017-01-29 04:57] LABS: CREATINE KINASE 159 IU/L (1-294); TOTAL CK 159 IU/L (1-294)
[2017-01-29 05:03] LABS: CK-MB 1.5 ng/mL (0.0-4.9)
[2017-01-29 05:12] LABS: EOSINOPHIL (%) 0.2 % (0-5); HEMATOLOGY COMMENT 1 SN; IMMATURE GRANULOCYTE (%) 4.2 % (0.0-0.7); IMMATURE GRANULOCYTE COUNT 0.5 K/uL; INSTRUMENT ABS NEUTROPHIL CT 9.5 K/uL; LYMPHOCYTE COUNT 0.8 K/uL (1.0-2.8); MONOCYTE (%) 2.3 % (3-12); MONOCYTE COUNT 0.3 K/uL (0-0.8); NEUTROPHIL (%) 86.3 % (45-76); NEUTROPHIL COUNT 9.5 K/uL (1.8-6.4)
[2017-01-29 05:38] LABS: GAMMA-GT 197 IU/L (4-73); SAMPLE HEMOLYSIS CHECK 0; SAMPLE ICTERIC CHECK 0; SAMPLE LIPEMIA CHECK 0
[2017-01-29 05:45] LABS: POINT-OF-CARE METER ID UU13113748
[2017-01-29 10:04] LABS: HEMATOCRIT 27.1 % (38.0-50.0); MCH 31.4 PG (29.0-34.0); MCHC 33.2 G/DL (30.0-36.0); MCV 94.4 FL (86-99); MEAN PLAT.VOLUME 10.3 uM^3 (9.0-12.4); NRBC (%) 0.3 /100 WBC (0-0); PLATELET COUNT 167 K/uL (156-360); RBC DIS.WIDTH-CV 14.6 % (11.8-14.6); RBC DIS.WIDTH-SD 50.4 % (39-53); RED BLOOD COUNT 2.87 M/uL (4.00-5.50); WHITE BLOOD COUNT 13.7 K/uL (4.1-10.2)
[2017-01-29 10:19] LABS: POINT-OF-CARE METER ID UU13113748
[2017-01-29 10:27] LABS: BASE EXCESS 14.7 mEq/L (-3 to +3); BICARBONATE 41.5 mEq/L (22-26); CARBOXY HGB 1.8 % (0-5); METHEMOGLOBIN 1.8 % (0-1.5); PCO2 64 mm Hg (35-45); PO2 68 mm Hg (80-100); SITE LR ALINE; pH 7.42 (7.35-7.45)
[2017-01-29 10:28] LABS: COMMENTS - BLOOD GASES C+ TLOW=0.5 SEC; DEVICE VENT; FI02 40 %; MECHANICAL RATE 10 resp/min; MODE BILEVEL; PRESSURE CONTROL VENTILATION 20 CM H20; TOTAL RESP RATE 10 resp/min
[2017-01-29 10:29] LABS: PROTHROMBIN TIME 10.4 (9.2-11.2); PTT 29.1 (25-32)
[2017-01-29 10:31] LABS: TROP-I INTERPRETATION NEGATIVE; TROPONIN-I 0.13 ng/mL (0.0-0.30)
[2017-01-29 11:10] LABS: CREATINE KINASE 111 IU/L (1-294); DIRECT BILIRUBIN 0.5 mg/dL (0.0-0.3); GAMMA-GT 188 IU/L (4-73); SAMPLE HEMOLYSIS CHECK 0; SAMPLE ICTERIC CHECK 0; SAMPLE LIPEMIA CHECK 0; TOTAL CK 111 IU/L (1-294); UREA NITROGEN (BUN) 38 mg/dL (9-23)
[2017-01-29 11:19] LABS: CHLORIDE 101 mEq/L (99-109); POTASSIUM 4.4 mEq/L (3.7-5.4); SODIUM 146 mEq/L (136-147)
[2017-01-29 11:21] LABS: MAGNESIUM 3.3 mg/dL (1.3-2.7)
[2017-01-29 11:22] LABS: GLUCOSE 194 mg/dL (70-99)
[2017-01-29 11:23] LABS: ANION GAP 15 MEQ/L (2-14)
[2017-01-29 11:25] LABS: ALKALINE PHOSPHATASE 88 IU/L (3-129); GFR ESTIMATE (CALCULATED) > 59 mL/min/
[2017-01-29 11:34] LABS: CK-MB 1.6 ng/mL (0.0-4.9)
[2017-01-29 11:36] LABS: EOSINOPHIL (%) 0 % (0-5); IMMATURE GRANULOCYTE (%) 6.3 % (0.0-0.7); IMMATURE GRANULOCYTE COUNT 0.9 K/uL; INSTRUMENT ABS NEUTROPHIL CT 11.5 K/uL; MONOCYTE (%) 2.5 % (3-12); MONOCYTE COUNT 0.3 K/uL (0-0.8); NEUTROPHIL COUNT 11.5 K/uL (1.8-6.4)
[2017-01-29 13:33] LABS: POINT-OF-CARE METER ID UU13113748
[2017-01-29 16:16] LABS: BASE EXCESS 16.3 mEq/L (-3 to +3); BICARBONATE 41.7 mEq/L (22-26); CARBOXY HGB 1.6 % (0-5); METHEMOGLOBIN 1.6 % (0-1.5); pH 7.48 (7.35-7.45)
[2017-01-29 16:20] LABS: DEVICE VENT PB980; FI02 100 %; MECHANICAL RATE 10 resp/min; MODE BILEVEL; PCO2 56 mm Hg (35-45); PO2 308 mm Hg (80-100); PRESSURE CONTROL VENTILATION 20 CM H20; SITE LR ALINE; TOTAL RESP RATE 10 resp/min
[2017-01-29 16:21] LABS: COMMENTS - BLOOD GASES C+ Tlow = 0.5SEC
[2017-01-29 16:27] LABS: HEMATOCRIT 25.1 % (38.0-50.0); MCH 30.5 PG (29.0-34.0); MCHC 32.7 G/DL (30.0-36.0); MCV 93.3 FL (86-99); MEAN PLAT.VOLUME 10.3 uM^3 (9.0-12.4); NRBC (%) 0.2 /100 WBC (0-0); PLATELET COUNT 161 K/uL (156-360); RBC DIS.WIDTH-CV 14.6 % (11.8-14.6); RBC DIS.WIDTH-SD 49.6 % (39-53); RED BLOOD COUNT 2.69 M/uL (4.00-5.50); WHITE BLOOD COUNT 14.2 K/uL (4.1-10.2)
[2017-01-29 16:45] LABS: INTER. NORMALIZED RATIO 1.1; PROTHROMBIN TIME 10.7 (9.2-11.2); PTT 28.9 (25-32)
[2017-01-29 17:07] LABS: TROP-I INTERPRETATION NEGATIVE; TROPONIN-I 0.14 ng/mL (0.0-0.30)
[2017-01-29 17:30] LABS: ABS NEUTROPHIL COUNT 13.3; BAND NEUTROPHILS 3.5 % (0-8.0); EOSINOPHIL ABS CT 0.1; EOSINOPHILS 0.9 % (0-5.0); INSTRUMENT ABS NEUTROPHIL CT 11.8 K/uL; LYMPHOCYTES 2.7 % (15.0-45.0); METAMYELOCYTES 0.9 %; PLAT.SUFFICIENCY ADEQUATE; SEG.NEUTROPHILS 90.2 % (46.0-76.0)
[2017-01-29 17:42] LABS: CK-MB 1.8 ng/mL (0.0-4.9)
[2017-01-29 17:46] LABS: POINT-OF-CARE METER ID UU13113748
[2017-01-29 18:09] LABS: BASE EXCESS 15.4 mEq/L (-3 to +3); BICARBONATE 40.4 mEq/L (22-26); CARBOXY HGB 1.5 % (0-5); PCO2 53 mm Hg (35-45); PO2 326 mm Hg (80-100); pH 7.49 (7.35-7.45)
[2017-01-29 18:10] LABS: COMMENTS - BLOOD GASES C+; DEVICE VENT; FI02 100 %; MECHANICAL RATE 12 resp/min; MODE AC VC+; PEEP 5 CM/H20; SITE LR ALINE; TIDAL VOLUME 520 ML; TOTAL RESP RATE 12 resp/min
[2017-01-29 18:20] LABS: ALKALINE PHOSPHATASE 71 IU/L (3-129); ANION GAP 10 MEQ/L (2-14); CHLORIDE 99 MEQ/L (99-109); CREATINE KINASE 86 IU/L (1-294); DIRECT BILIRUBIN 0.4 mg/dL (0.0-0.3); GAMMA-GT 163 IU/L (4-73); GFR ESTIMATE (CALCULATED) 56 mL/min/; GLUCOSE 214 mg/dL (70-99); POTASSIUM 3.7 MEQ/L (3.7-5.4); SAMPLE HEMOLYSIS CHECK 0; SAMPLE ICTERIC CHECK 0; SAMPLE LIPEMIA CHECK 0; SODIUM 144 MEQ/L (136-147); TOTAL BILIRUBIN 0.8 MG/DL (0.0-1.0); TOTAL CK 86 IU/L (1-294); UREA NITROGEN (BUN) 45 mg/dL (9-23)
[2017-01-29 18:21] LABS: MAGNESIUM 2.8 mg/dl (1.3-2.7)
[2017-01-29 21:45] LABS: POINT-OF-CARE METER ID UU13113748
[2017-01-29 21:53] LABS: HEMATOCRIT 23.9 % (38.0-50.0); MCHC 32.2 G/DL (30.0-36.0); MEAN PLAT.VOLUME 10.6 uM^3 (9.0-12.4); NRBC (%) 0.2 /100 WBC (0-0); PLATELET COUNT 173 K/uL (156-360); RBC DIS.WIDTH-CV 14.4 % (11.8-14.6); RBC DIS.WIDTH-SD 49.2 % (39-53); RED BLOOD COUNT 2.57 M/uL (4.00-5.50); WHITE BLOOD COUNT 13.9 K/uL (4.1-10.2)
[2017-01-29 22:01] LABS: BASE EXCESS 14.3 mEq/L (-3 to +3); COMMENTS - BLOOD GASES C; DEVICE VENT; FI02 40 %; MECHANICAL RATE 10 resp/min; METHEMOGLOBIN 1.6 % (0-1.5); PCO2 50 mm Hg (35-45); PO2 75 mm Hg (80-100); SITE LR ALINE; TOTAL RESP RATE 10 resp/min
[2017-01-29 22:02] LABS: INSPIRATION TIME 0.5 seconds; MODE BILEVEL 20/0; PRESSURE CONTROL VENTILATION 20 CM H20
[2017-01-29 22:04] LABS: INTER. NORMALIZED RATIO 1.1; PROTHROMBIN TIME 10.7 (9.2-11.2); PTT 28.6 (25-32)
[2017-01-29 22:15] LABS: CK-MB 1.6 ng/mL (0.0-4.9); TROP-I INTERPRETATION NEGATIVE; TROPONIN-I 0.11 ng/mL (0.0-0.30)
[2017-01-29 22:36] LABS: ABS NEUTROPHIL COUNT 12.2; ANISOCYTOSIS 1+; EOSINOPHIL ABS CT 0; INSTRUMENT ABS NEUTROPHIL CT 11.9 K/uL; METAMYELOCYTES 0.9 %; MYELOCYTES 0.9 %; PLAT.SUFFICIENCY ADEQUATE; SEG.NEUTROPHILS 87.6 % (46.0-76.0)
[2017-01-29 22:45] LABS: ALKALINE PHOSPHATASE 68 IU/L (3-129); ANION GAP 9 MEQ/L (2-14); CHLORIDE 100 MEQ/L (99-109); CREATINE KINASE 83 IU/L (1-294); DIRECT BILIRUBIN 0.4 mg/dL (0.0-0.3); GAMMA-GT 154 IU/L (4-73); GFR ESTIMATE (CALCULATED) 56 mL/min/; GLUCOSE 222 mg/dL (70-99); MAGNESIUM 2.8 mg/dl (1.3-2.7); POTASSIUM 3.6 MEQ/L (3.7-5.4); SAMPLE HEMOLYSIS CHECK 0; SAMPLE ICTERIC CHECK 0; SAMPLE LIPEMIA CHECK 0; SODIUM 144 MEQ/L (136-147); TOTAL CK 83 IU/L (1-294); UREA NITROGEN (BUN) 51 mg/dL (9-23)
[2017-01-30 03:28] LABS: ADD MIUA? YES; BILIRUBIN NEGATIVE; BLOOD SMALL; COLOR AMBER ((YELLOW)); GLUCOSE (STRIP) NEGATIVE; KETONES NEGATIVE; LEUKOCYTES NEGATIVE; NITRITE NEGATIVE; PROTEIN (STRIP) 30; UROBILINOGEN 0.2 MG/DL (0.2-1.0)
[2017-01-30 03:43] LABS: BACTERIA RARE /HPF; EPITHELIAL CELLS RARE /HPF; MUCUS TRACE /LPF; WHITE BLOOD CELLS 0-5 /HPF (0-5)
[2017-01-30 04:15] LABS: BASE EXCESS 14.9 mEq/L (-3 to +3); BICARBONATE 39.8 mEq/L (22-26); CARBOXY HGB 1.3 % (0-5); COMMENTS - BLOOD GASES C; DEVICE 840; METHEMOGLOBIN 1.7 % (0-1.5); PCO2 51 mm Hg (35-45); PO2 88 mm Hg (80-100); SITE LR ALINE
[2017-01-30 04:16] LABS: FI02 40 %; INSPIRATION TIME 0.5 seconds; MECHANICAL RATE 10 resp/min; MODE BILEVEL 20/0; TOTAL RESP RATE 10 resp/min
[2017-01-30 04:42] LABS: MCH 29.9 PG (29.0-34.0); MCHC 32.3 G/DL (30.0-36.0); MCV 92.5 FL (86-99); MEAN PLAT.VOLUME 10.7 uM^3 (9.0-12.4); NRBC (%) 0.3 /100 WBC (0-0); PLATELET COUNT 177 K/uL (156-360); RBC DIS.WIDTH-CV 14.3 % (11.8-14.6); RBC DIS.WIDTH-SD 48.6 % (39-53); RED BLOOD COUNT 2.81 M/uL (4.00-5.50); WHITE BLOOD COUNT 15.4 K/uL (4.1-10.2)
[2017-01-30 04:57] LABS: CHLORIDE 100 mEq/L (99-109); POTASSIUM 3.7 mEq/L (3.7-5.4); SODIUM 145 mEq/L (136-147)
[2017-01-30 04:57] LABS: INTER. NORMALIZED RATIO 1.1; PROTHROMBIN TIME 10.9 (9.2-11.2); PTT 28.2 (25-32)
[2017-01-30 04:58] LABS: MAGNESIUM 2.9 mg/dL (1.3-2.7)
[2017-01-30 04:59] LABS: GLUCOSE 241 mg/dL (70-99)
[2017-01-30 05:01] LABS: ANION GAP 10 MEQ/L (2-14); TOTAL BILIRUBIN 0.8 mg/dL (0.0-1.0)
[2017-01-30 05:03] LABS: ALKALINE PHOSPHATASE 81 IU/L (3-129); GFR ESTIMATE (CALCULATED) 56 mL/min/
[2017-01-30 05:04] LABS: UREA NITROGEN (BUN) 53 mg/dL (9-23)
[2017-01-30 05:05] LABS: DIRECT BILIRUBIN 0.5 mg/dL (0.0-0.3)
[2017-01-30 05:06] LABS: CREATINE KINASE 101 IU/L (1-294); TOTAL CK 101 IU/L (1-294)
[2017-01-30 05:07] LABS: TROP-I INTERPRETATION NEGATIVE
[2017-01-30 05:12] LABS: CK-MB 0.9 ng/mL (0.0-4.9)
[2017-01-30 06:17] LABS: GAMMA-GT 170 IU/L (4-73)
[2017-01-30 07:27] LABS: POINT-OF-CARE METER ID UU13113731
[2017-01-30 08:03] LABS: ABS NEUTROPHIL COUNT 12.9; ANISOCYTOSIS 1+; EOSINOPHIL ABS CT 0; INSTRUMENT ABS NEUTROPHIL CT 12.8 K/uL; PLAT.SUFFICIENCY ADEQUATE
[2017-01-30 08:18] LABS: POINT-OF-CARE METER ID UU13113731
[2017-01-30 09:18] LABS: POINT-OF-CARE METER ID UU13113731
[2017-01-30 09:49] LABS: BASE EXCESS 14.3 mEq/L (-3 to +3); CARBOXY HGB 1.7 % (0-5); METHEMOGLOBIN 1.4 % (0-1.5); PCO2 50 mm Hg (35-45); PO2 93 mm Hg (80-100)
[2017-01-30 09:50] LABS: COMMENTS - BLOOD GASES C+ RN DREW; DEVICE VENT; MECHANICAL RATE 10 resp/min; MODE BILEVEL; PRESSURE CONTROL VENTILATION 20 CM H20; SITE LR ALINE
[2017-01-30 10:17] LABS: HEMATOCRIT 24.9 % (38.0-50.0); MCH 30.9 PG (29.0-34.0); MCHC 32.9 G/DL (30.0-36.0); MEAN PLAT.VOLUME 10.6 uM^3 (9.0-12.4); NRBC (%) 0.1 /100 WBC (0-0); PLATELET COUNT 176 K/uL (156-360); RBC DIS.WIDTH-CV 14.4 % (11.8-14.6); RBC DIS.WIDTH-SD 49.1 % (39-53); RED BLOOD COUNT 2.65 M/uL (4.00-5.50); WHITE BLOOD COUNT 16.7 K/uL (4.1-10.2)
[2017-01-30 10:27] LABS: POINT-OF-CARE METER ID UU13113731
[2017-01-30 10:28] LABS: INTER. NORMALIZED RATIO 1.1; PROTHROMBIN TIME 11.4 (9.2-11.2)
[2017-01-30 10:40] LABS: TROP-I INTERPRETATION NEGATIVE; TROPONIN-I 0.09 ng/mL (0.0-0.30)
[2017-01-30 11:11] LABS: POINT-OF-CARE METER ID UU13113731
[2017-01-30 11:13] LABS: ALKALINE PHOSPHATASE 74 IU/L (3-129); ANION GAP 11 MEQ/L (2-14); CHLORIDE 99 MEQ/L (99-109); CREATINE KINASE 74 IU/L (1-294); DIRECT BILIRUBIN 0.3 mg/dL (0.0-0.3); GAMMA-GT 154 IU/L (4-73); GFR ESTIMATE (CALCULATED) > 59 mL/min/; GLUCOSE 258 mg/dL (70-99); MAGNESIUM 2.7 mg/dl (1.3-2.7); SAMPLE HEMOLYSIS CHECK 0; SAMPLE ICTERIC CHECK 0; SAMPLE LIPEMIA CHECK 0; SODIUM 145 MEQ/L (136-147); TOTAL CK 74 IU/L (1-294); UREA NITROGEN (BUN) 55 mg/dL (9-23)
[2017-01-30 11:14] LABS: CK-MB 1.1 ng/mL (0.0-4.9)
[2017-01-30 11:30] LABS: ABS NEUTROPHIL COUNT 15.5; ANISOCYTOSIS 1+; BAND NEUTROPHILS 1.8 % (0-8.0); EOSINOPHIL ABS CT 0; INSTRUMENT ABS NEUTROPHIL CT 14.5 K/uL; LYMPHOCYTES 5.5 % (15.0-45.0); METAMYELOCYTES 1.8 %; PLAT.SUFFICIENCY ADEQUATE; SEG.NEUTROPHILS 90.9 % (46.0-76.0)
[2017-01-30 12:12] LABS: POINT-OF-CARE METER ID UU13113731
[2017-01-30 12:46] LABS: FI02 40 %
[2017-01-30 13:13] LABS: POINT-OF-CARE METER ID UU13113731
[2017-01-30 14:21] LABS: POINT-OF-CARE METER ID UU13113731
[2017-01-30 15:31] LABS: POINT-OF-CARE METER ID UU13113731
[2017-01-30 16:23] LABS: BASE EXCESS 15.9 mEq/L (-3 to +3); BICARBONATE 41.5 mEq/L (22-26); CARBOXY HGB 1.7 % (0-5); METHEMOGLOBIN 1.7 % (0-1.5); PO2 86 mm Hg (80-100); pH 7.47 (7.35-7.45)
[2017-01-30 16:24] LABS: DEVICE VENT; FI02 40 %; MECHANICAL RATE 10 resp/min; MODE BILEVEL; PCO2 57 mm Hg (35-45); PRESSURE CONTROL VENTILATION 20 CM H20; SITE LR ALINE; TOTAL RESP RATE 10 resp/min
[2017-01-30 16:26] LABS: HEMATOCRIT 25.5 % (38.0-50.0); MCH 30.4 PG (29.0-34.0); MCHC 32.5 G/DL (30.0-36.0); MCV 93.4 FL (86-99); NRBC (%) 0.1 /100 WBC (0-0); PLATELET COUNT 176 K/uL (156-360); RBC DIS.WIDTH-CV 14.1 % (11.8-14.6); RBC DIS.WIDTH-SD 47.8 % (39-53); RED BLOOD COUNT 2.73 M/uL (4.00-5.50); WHITE BLOOD COUNT 18.8 K/uL (4.1-10.2)
[2017-01-30 16:31] LABS: POINT-OF-CARE METER ID UU13113731
[2017-01-30 16:39] LABS: INTER. NORMALIZED RATIO 1.1; PROTHROMBIN TIME 11.6 (9.2-11.2); PTT 27.8 (25-32)
[2017-01-30 16:46] LABS: ALKALINE PHOSPHATASE 75 IU/L (3-129); ANION GAP 14 MEQ/L (2-14); CHLORIDE 96 MEQ/L (99-109); CREATINE KINASE 64 IU/L (1-294); DIRECT BILIRUBIN 0.4 mg/dL (0.0-0.3); GAMMA-GT 150 IU/L (4-73); GFR ESTIMATE (CALCULATED) > 59 mL/min/; GLUCOSE 276 mg/dL (70-99); MAGNESIUM 2.5 mg/dl (1.3-2.7); POTASSIUM 3.2 MEQ/L (3.7-5.4); SAMPLE HEMOLYSIS CHECK 0; SAMPLE ICTERIC CHECK 0; SAMPLE LIPEMIA CHECK 0; SODIUM 143 MEQ/L (136-147); TOTAL BILIRUBIN 0.9 MG/DL (0.0-1.0); TOTAL CK 64 IU/L (1-294); TROP-I INTERPRETATION NEGATIVE; TROPONIN-I 0.07 ng/mL (0.0-0.30); UREA NITROGEN (BUN) 55 mg/dL (9-23)
[2017-01-30 17:03] LABS: CK-MB 1.4 ng/mL (0.0-4.9)
[2017-01-30 17:04] LABS: ABS NEUTROPHIL COUNT 17.3; ANISOCYTOSIS 2+; BAND NEUTROPHILS 18.6 % (0-8.0); EOSINOPHIL ABS CT 0; GIANT PLATELETS 1+; HYPOCHROMASIA 2+; INSTRUMENT ABS NEUTROPHIL CT 16.2 K/uL; LYMPHOCYTES 5.3 % (15.0-45.0); MACROCYTES 1+; METAMYELOCYTES 0.9 %; MICROCYTOSIS 1+; PLAT.SUFFICIENCY ADEQUATE; POLYCHROMASIA 1+; SEG.NEUTROPHILS 73.4 % (46.0-76.0); STOMATOCYTES 3+
[2017-01-30 17:31] LABS: POINT-OF-CARE METER ID UU13113731
[2017-01-30 18:27] LABS: POINT-OF-CARE METER ID UU13113731
[2017-01-30 19:27] LABS: POINT-OF-CARE METER ID UU13113731
[2017-01-30 20:28] LABS: POINT-OF-CARE METER ID UU13113731
[2017-01-30 21:25] LABS: POINT-OF-CARE METER ID UU13113731
[2017-01-30 21:58] LABS: BASE EXCESS 9.4 mEq/L (-3 to +3); CARBOXY HGB 1.7 % (0-5); METHEMOGLOBIN 1.8 % (0-1.5); pH 7.44 (7.35-7.45)
[2017-01-30 21:59] LABS: BICARBONATE 34.6 mEq/L (22-26); COMMENTS - BLOOD GASES C; DEVICE 840; FI02 40 %; INSPIRATION TIME 0.5 seconds; MECHANICAL RATE 10 resp/min; MODE BILEVEL 20/0; PCO2 51 mm Hg (35-45); PO2 105 mm Hg (80-100); SITE ALINE; TOTAL RESP RATE 10 resp/min
[2017-01-30 22:05] LABS: EOSINOPHIL (%) 0 % (0-5); HEMATOCRIT 25.6 % (38.0-50.0); IMMATURE GRANULOCYTE (%) 4.8 % (0.0-0.7); IMMATURE GRANULOCYTE COUNT 0.9 K/uL; INSTRUMENT ABS NEUTROPHIL CT 16.7 K/uL; LYMPHOCYTE COUNT 0.7 K/uL (1.0-2.8); MCHC 32.4 G/DL (30.0-36.0); MCV 92.4 FL (86-99); MEAN PLAT.VOLUME 10.4 uM^3 (9.0-12.4); MONOCYTE (%) 4.4 % (3-12); MONOCYTE COUNT 0.8 K/uL (0-0.8); NEUTROPHIL (%) 87.2 % (45-76); NEUTROPHIL COUNT 16.7 K/uL (1.8-6.4); NRBC (%) 0.1 /100 WBC (0-0); PLATELET COUNT 172 K/uL (156-360); RBC DIS.WIDTH-SD 47.7 % (39-53); RED BLOOD COUNT 2.77 M/uL (4.00-5.50); WHITE BLOOD COUNT 19.2 K/uL (4.1-10.2)
[2017-01-30 22:14] LABS: INTER. NORMALIZED RATIO 1.2; PROTHROMBIN TIME 11.9 (9.2-11.2); PTT 28.5 (25-32)
[2017-01-30 22:16] LABS: CHLORIDE 100 mEq/L (99-109); SODIUM 144 mEq/L (136-147)
[2017-01-30 22:17] LABS: MAGNESIUM 2.5 mg/dL (1.3-2.7)
[2017-01-30 22:19] LABS: GLUCOSE 170 mg/dL (70-99)
[2017-01-30 22:20] LABS: ANION GAP 12 MEQ/L (2-14); TOTAL BILIRUBIN 0.9 mg/dL (0.0-1.0)
[2017-01-30 22:22] LABS: ALKALINE PHOSPHATASE 76 IU/L (3-129); GFR ESTIMATE (CALCULATED) 56 mL/min/
[2017-01-30 22:23] LABS: UREA NITROGEN (BUN) 55 mg/dL (9-23)
[2017-01-30 22:23] LABS: ADD MIUA? YES; BILIRUBIN NEGATIVE; BLOOD SMALL; COLOR YELLOW ((YELLOW)); GLUCOSE (STRIP) NEGATIVE; KETONES NEGATIVE; LEUKOCYTES NEGATIVE; NITRITE NEGATIVE; PROTEIN (STRIP) NEGATIVE; SPECIFIC GRAVITY 1.011 (1.000-1.030); UROBILINOGEN 0.2 MG/DL (0.2-1.0)
[2017-01-30 22:24] LABS: DIRECT BILIRUBIN 0.6 mg/dL (0.0-0.3)
[2017-01-30 22:25] LABS: CREATINE KINASE 70 IU/L (1-294); TOTAL CK 70 IU/L (1-294)
[2017-01-30 22:26] LABS: TROP-I INTERPRETATION NEGATIVE; TROPONIN-I 0.07 ng/mL (0.0-0.30)
[2017-01-30 22:27] LABS: POINT-OF-CARE METER ID UU13113731
[2017-01-30 22:30] LABS: BACTERIA RARE /HPF; EPITHELIAL CELLS RARE /HPF; GRANULAR CASTS 15-20 /LPF; HYALINE CASTS 15-20 /LPF; MUCUS 1+ /LPF; WHITE BLOOD CELLS NONE SEEN /HPF (0-5)
[2017-01-30 22:30] LABS: POTASSIUM 4.3 mEq/L (3.7-5.4)
[2017-01-30 22:32] LABS: CK-MB 1.2 ng/mL (0.0-4.9)
[2017-01-30 22:55] LABS: GAMMA-GT 145 IU/L (4-73); SAMPLE HEMOLYSIS CHECK 0; SAMPLE ICTERIC CHECK 0; SAMPLE LIPEMIA CHECK 0
[2017-01-30 23:24] LABS: POINT-OF-CARE METER ID UU13113731
[2017-01-30 23:46] LABS: POINT-OF-CARE METER ID UU13113731
[2017-01-31 00:47] LABS: POINT-OF-CARE METER ID UU13113731
[2017-01-31 01:46] LABS: POINT-OF-CARE METER ID UU13113731
[2017-01-31 02:00] LABS: BASE EXCESS 13.5 mEq/L (-3 to +3); BICARBONATE 38.6 mEq/L (22-26); CARBOXY HGB 1.8 % (0-5); COMMENTS - BLOOD GASES C; METHEMOGLOBIN 1.8 % (0-1.5); PCO2 53 mm Hg (35-45); PO2 90 mm Hg (80-100); SITE ALINE; pH 7.47 (7.35-7.45)
[2017-01-31 02:01] LABS: DEVICE 840; FI02 40 %; INSPIRATION TIME 0.5 seconds; MECHANICAL RATE 10 resp/min; MODE BILEVEL 20/0; TOTAL RESP RATE 10 resp/min
[2017-01-31 02:13] LABS: EOSINOPHIL (%) 0 % (0-5); IMMATURE GRANULOCYTE (%) 4.7 % (0.0-0.7); INSTRUMENT ABS NEUTROPHIL CT 18.3 K/uL; LYMPHOCYTE COUNT 0.8 K/uL (1.0-2.8); MCH 29.8 PG (29.0-34.0); MCHC 32.1 G/DL (30.0-36.0); MEAN PLAT.VOLUME 10.2 uM^3 (9.0-12.4); MONOCYTE (%) 4.7 % (3-12); NEUTROPHIL (%) 86.9 % (45-76); NEUTROPHIL COUNT 18.3 K/uL (1.8-6.4); PLATELET COUNT 204 K/uL (156-360); RBC DIS.WIDTH-CV 14.2 % (11.8-14.6); RBC DIS.WIDTH-SD 48.2 % (39-53); RED BLOOD COUNT 2.58 M/uL (4.00-5.50)
[2017-01-31 02:24] LABS: CHLORIDE 99 mEq/L (99-109); INTER. NORMALIZED RATIO 1.2; POTASSIUM 4.1 mEq/L (3.7-5.4); PTT 28.4 (25-32); SODIUM 143 mEq/L (136-147)
[2017-01-31 02:25] LABS: MAGNESIUM 2.4 mg/dL (1.3-2.7)
[2017-01-31 02:27] LABS: GLUCOSE 147 mg/dL (70-99)
[2017-01-31 02:28] LABS: ANION GAP 13 MEQ/L (2-14)
[2017-01-31 02:30] LABS: ALKALINE PHOSPHATASE 74 IU/L (3-129)
[2017-01-31 02:31] LABS: GFR ESTIMATE (CALCULATED) 56 mL/min/
[2017-01-31 02:32] LABS: DIRECT BILIRUBIN 0.7 mg/dL (0.0-0.3); UREA NITROGEN (BUN) 58 mg/dL (9-23)
[2017-01-31 02:34] LABS: CREATINE KINASE 68 IU/L (1-294); TOTAL CK 68 IU/L (1-294)
[2017-01-31 02:40] LABS: TROP-I INTERPRETATION NEGATIVE; TROPONIN-I 0.07 ng/mL (0.0-0.30)
[2017-01-31 02:41] LABS: CK-MB 0.8 ng/mL (0.0-4.9)
[2017-01-31 02:58] LABS: POINT-OF-CARE METER ID UU13113731
[2017-01-31 03:51] LABS: POINT-OF-CARE METER ID UU13113803
[2017-01-31 04:01] LABS: GAMMA-GT 141 IU/L (4-73)
[2017-01-31 04:53] LABS: POINT-OF-CARE METER ID UU13113731
== END 2017-01-31 09:10 | DRG 917 ==
LOC: EME 13:52 → EDOF 15:04 → 4WEST 15:04
PROVIDERS: Emergency Medicine; Internal Medicine Critical Care Medicine; Internal Medicine Nephrology
PROC: 03HY32Z Insertion of Monitoring Device into Upper Artery, Percutaneous Approach (ICD-10-PCS; principal; 2017-01-23)
PROC: 5A1945Z Respiratory Ventilation, 24-96 Consecutive Hours (ICD-10-PCS; principal; 2017-01-23)
PROC: 02HV33Z Insertion of Infusion Device into Superior Vena Cava, Percutaneous Approach (ICD-10-PCS; principal; 2017-01-23)
DX: T40.5X1A Poisoning by cocaine, accidental (unintentional), initial encounter (principal); G93.5 Compression of brain; I46.9 Cardiac arrest, cause unspecified; G93.6 Cerebral edema; J69.0 Pneumonitis due to inhalation of food and vomit; G93.1 Anoxic brain damage, not elsewhere classified; K92.2 Gastrointestinal hemorrhage, unspecified; R56.9 Unspecified convulsions; J96.00 Acute respiratory failure, unspecified whether with hypoxia or hypercapnia; E87.0 Hyperosmolality and hypernatremia; E87.2 Acidosis; E87.6 Hypokalemia; F17.210 Nicotine dependence, cigarettes, uncomplicated; I10 Essential (primary) hypertension; J81.0 Acute pulmonary edema; N17.9 Acute kidney failure, unspecified; N39.0 Urinary tract infection, site not specified; F19.20 Other psychoactive substance dependence, uncomplicated; R00.0 Tachycardia, unspecified
CPT/HCPCS: 36600; 70450; 70551; 71010; 78610; 80048; 80048 91; 80053; 80076; 80306 90; 81003; 82140; 82150; 82248; 82271; 82330; 82550; 82550 91; 82553; 82803; 82948; 82977; 83605; 83690; 83735; 83930; 84100; 84295; 84443; 84484; 84999; 85025; 85025 91; 85027; 85610; 85730; 86900; 86901; 86920; 87040; 87070; 87077; 87086; 87147; 87186; 87205; 87641; 88331; 93005; 93306; 94002; 94003; 94640; 94640 76; 95819; 99202; 99281; 99285; A9539; C9113; G0480; J0171; J0360; J0610; J0690; J0696; J1250; J1644; J1815; J1940; J1953; J2060; J2543; J2704; J2930; J3010; J3475; J3480; J7030; J7040; J7050; J7070; J7120; P9047; S0028